=== PATIENT | female | born 1995 | race Caucasian/White ===

== ENCOUNTER 2021-12-14 19:52 | Emergency (ER) | payer OTHER ==
[~2021-12-14] VITALS: Ht 167.6 cm; Wt 61.2 kg
--- NOTE | 2021-12-14 20:39 | NUR ---
BIBS TO ER BED 4. AAOX4. AMBULATORY. NOT IN RESP DISTRESS. CAME IN FOR DIFFUSED ABD PAIN STARTED LAST NIGHT. PT REPORTS CRAMPING. REPORTS BLOATING, GASSY AND BURPING. DENIES N/V/D. URINE WAS COLLECTED. AWAITING PROVIDER AT BEDSIDE.
[2021-12-14] MEDS ORDERED: HYDROCODONE/APAP 5/325MG TABLET PO ONE (21:00)
[2021-12-14] MEDS ORDERED: ONDANSETRON HCL/PF 4 MG/2 ML VIAL IV ONE (21:00)
[2021-12-14] MEDS ORDERED: IV NS 0.9% 1,000 ML IV ONE (21:00)
[2021-12-14] MEDS ORDERED: ONDANSETRON HCL/PF 4 MG/2 ML VIAL ONE (21:02)
[2021-12-14] MEDS ORDERED: HYDROCODONE/APAP 5/325MG TABLET ONE (21:02)
[2021-12-14 21:13] LABS: BASOPHILS % (AUTO) 0.1 % (0.0-2.0); EOSINOPHILS % (AUTO) 0.3 % (0.0-6.0); HEMATOCRIT 38 % (33-45); LYMPHOCYTES # (AUTO) 1.3 K/uL (0.8-4.8); LYMPHOCYTES % (AUTO) 11.2 % (20.0-44.0); MEAN CORPUSCULAR HGB CONC 35 g/dl (31.0-36.0); MEAN CORPUSCULAR VOLUME 89 fL (82-100); MONOCYTES # (AUTO) 0.9 K/uL (0.1-1.30); MONOCYTES % (AUTO) 7.2 % (2.0-12.0); NEUTROPHILS # (AUTO) 9.8 K/uL (1.8-8.9); NEUTROPHILS % (AUTO) 81.2 % (43.0-81.0); PLATELET COUNT (AUTO) 170 K/uL (150-450); RED BLOOD CELL COUNT(AUTO) 4.24 MIL/uL (4.0-5.2)
[2021-12-14 21:36] LABS: CALCIUM, SERUM 8.9 mg/dL (8.5-10.1); CREATININE 0.8 mg/dL (0.6-1.3); POTASSIUM 3.6 mmol/L (3.5-5.1)
[2021-12-14 21:36] LABS: BILIRUBIN,URINE NEGATIVE (NEGATIVE); COLOR,URINE YELLOW (YELLOW); LEUKOCYTE ESTERASE ,URINE MODERATE (NEGATIVE); NITRITE, URINE NEGATIVE (NEGATIVE); PH,URINE 7.5 (5.0-8.0); PROTEIN,URINE NEGATIVE (NEGATIVE); UGLUCOSE NEGATIVE (NEGATIVE); UROBILINOGEN,URINE 0.2 EU/dL (0.2)
[2021-12-14 21:49] LABS: BACTERIA,URINE 3+ /HPF (None Seen); WBC,URINE 21-50 /HPF (0-3)
[2021-12-14 21:51] LABS: ALBUMIN 3.9 g/dL (3.4-5.0); BILIRUBIN,DIRECT 0.3 mg/dL (0.0-0.2); BILIRUBIN,TOTAL 1.1 mg/dL (0.2-1.0); TOTAL PROTEIN, SERUM 7.3 g/dL (6.4-8.2)
[2021-12-14 22:24] LABS: BASOPHILS % (AUTO) 0.3 % (0.0-2.0); EOSINOPHILS % (AUTO) 0.5 % (0.0-6.0); HEMATOCRIT 37 % (33-45); HEMOGLOBIN 12.5 g/dL (11.5-14.8); LYMPHOCYTES # (AUTO) 1.5 K/uL (0.8-4.8); LYMPHOCYTES % (AUTO) 12.8 % (20.0-44.0); MEAN CORPUSCULAR HGB CONC 34 g/dl (31.0-36.0); MEAN CORPUSCULAR VOLUME 90 fL (82-100); MONOCYTES # (AUTO) 0.8 K/uL (0.1-1.30); MONOCYTES % (AUTO) 6.7 % (2.0-12.0); NEUTROPHILS # (AUTO) 9.5 K/uL (1.8-8.9); NEUTROPHILS % (AUTO) 79.7 % (43.0-81.0); PLATELET COUNT (AUTO) 164 K/uL (150-450); RED BLOOD CELL COUNT(AUTO) 4.08 MIL/uL (4.0-5.2); WHITE BLOOD COUNT (AUTO) 11.9 K/uL (4.3-11.0)
[2021-12-14] MEDS ORDERED: MORPHINE SULFATE 8 MG/ML VIAL IV ONE (22:30)
[2021-12-14] MEDS ORDERED: MORPHINE SULFATE INJ 4 MG/ML DISP.SYRIN ONE (22:33)
[2021-12-14] MEDS ORDERED: HYDR-4209 PO (23:20)
--- NOTE | 2021-12-15 00:45 | NUR ---
Patient discharged to home in stable condition. Written and verbal after care instructions given. Patient verbalizes understanding of instruction.IV removed. Catheter intact and site benign. Pressure and 4x4 applied to site. No bleeding noted. Pt ambulatory with a steady gait
[2021-12-15 00:58] VITALS: BP 116/78
== END 2021-12-15 00:58 | disposition home or self-care (01) ==
LOC: ER 20:14
DX: N83.202 Unspecified ovarian cyst, left side (principal); F32.9 Major depressive disorder, single episode, unspecified
CPT/HCPCS: 36415; 74176; 76700; 76856; 80053; 80076; 81001; 83690; 84703; 85025 ×2; 87086; 96361; 96374; 96375; 99284; J2270 ×2; J2405; J7030

== ENCOUNTER 2022-01-30 22:51 | Emergency (ER) | payer OTHER ==
[~2022-01-30] VITALS: Ht 167.6 cm; Wt 61.2 kg
[~2022-01-30 22:51] MED LIST: HYDR-4209 PO
--- NOTE | 2022-01-30 23:40 | NUR ---
BIBS TO ER BED 16. AAOX4. NOT IN RESP DISTRESS. AMBULATORY. CAME IN FOR L LOWR ABD PAIN X YESTERDAY. PER PT SHE WAS DX WITH OVARIAN CYST. PAIN RATES HER PAIN 8/10 FEELS LIKE SQUEEZING. PT WAS NAUSEOUS BUT VERBALIZES THAT ITS BETTER. MD WAS AT THE BEDSIDE FOR EVAL. AWAITING ORDERS
--- NOTE | 2022-01-30 23:59 | NUR ---
URINE SENT TO LAB
[2022-01-31 00:22] LABS: BASOPHILS # (AUTO) 0.1 K/uL (0.0-0.2); BASOPHILS % (AUTO) 0.5 % (0.0-2.0); EOSINOPHILS % (AUTO) 1.2 % (0.0-6.0); HEMATOCRIT 37 % (33-45); HEMOGLOBIN 12.5 g/dL (11.5-14.8); LYMPHOCYTES # (AUTO) 1.5 K/uL (0.8-4.8); MEAN CORPUSCULAR HGB CONC 34 g/dl (31.0-36.0); MEAN CORPUSCULAR VOLUME 89 fL (82-100); MONOCYTES # (AUTO) 0.6 K/uL (0.1-1.30); MONOCYTES % (AUTO) 5.3 % (2.0-12.0); NEUTROPHILS # (AUTO) 8.3 K/uL (1.8-8.9); PLATELET COUNT (AUTO) 203 K/uL (150-450); RED BLOOD CELL COUNT(AUTO) 4.16 MIL/uL (4.0-5.2); WHITE BLOOD COUNT (AUTO) 10.5 K/uL (4.3-11.0)
--- NOTE | 2022-01-31 00:56 | NUR ---
AWAITING FOR US
--- NOTE | 2022-01-31 01:13 | NUR ---
US TECH AT BED SIDE
[2022-01-31 01:33] LABS: CALCIUM, SERUM 8.3 mg/dL (8.5-10.1); CREATININE 0.8 mg/dL (0.6-1.3); POTASSIUM 3.6 mmol/L (3.5-5.1)
[2022-01-31 01:34] LABS: BILIRUBIN,URINE NEGATIVE (NEGATIVE); COLOR,URINE YELLOW (YELLOW); LEUKOCYTE ESTERASE ,URINE MODERATE (NEGATIVE); NITRITE, URINE NEGATIVE (NEGATIVE); PROTEIN,URINE TRACE mg/dl (NEGATIVE); UGLUCOSE NEGATIVE (NEGATIVE); UROBILINOGEN,URINE 0.2 EU/dL (0.2)
[2022-01-31 01:53] LABS: RBC,URINE 0-2 /HPF (0-2)
[2022-01-31 01:54] LABS: BACTERIA,URINE Moderate /HPF (None Seen); SQUAMOUS EPITHELIAL CELL,UR Moderate /HPF (None Seen); WBC,URINE 21-50 /HPF (0-3)
[2022-01-31] MEDS ORDERED: CEPHALEXIN MONOHYDRATE 500 MG CAPSULE PO ONE ×2 (02:50→03:00)
[2022-01-31] MEDS ORDERED: MORPHINE SULFATE INJ 4 MG/ML DISP.SYRIN ONE (02:50)
[2022-01-31] MEDS ORDERED: CEFTRIAXONE 1 G in IV D5W 50 ML IV ONE (03:00)
[2022-01-31] MEDS ORDERED: MORPHINE SULFATE INJ 2 MG/ML DISP.SYRIN IV ONE (03:00)
--- NOTE | 2022-01-31 03:01 | NUR ---
PAGED DR KURTIS HERNANDEZ
--- NOTE | 2022-01-31 03:04 | NUR ---
DR LINO ON THE PHONE WITH [facility]
[2022-01-31] MEDS ORDERED: CEFTRIAXONE 1GM BAG (ER ONLY) 50 ML IV ONE (03:25)
--- NOTE | 2022-01-31 03:32 | NUR ---
KEFLEX NOT GIVEN CHANGED TO IV.
--- NOTE | 2022-01-31 03:39 | NUR ---
COVID SWAB DONE AND SENT TO LAB
--- NOTE | 2022-01-31 03:45 | NUR ---
CALLED [facility] AND FAXED THE CLINICALS TO [facility] AT [phone]
--- NOTE | 2022-01-31 04:01 | NUR ---
DR LINO ON THE PHONE WITH [facility]
--- NOTE | 2022-01-31 04:06 | NUR ---
DR LINO SPEAKING TO THE PT AT BED SIDE
[2022-01-31] MEDS ORDERED: CEPH500C2 PO (04:46)
--- NOTE | 2022-01-31 04:55 | NUR ---
Patient discharged to home in stable condition. Written and verbal after care instructions given. Patient verbalizes understanding of instruction.
[2022-01-31 04:56] VITALS: BP 125/80
== END 2022-01-31 04:56 | disposition home or self-care (01) ==
LOC: ER 22:59
DX: N83.202 Unspecified ovarian cyst, left side (principal); N39.0 Urinary tract infection, site not specified; Z20.822 Contact with and (suspected) exposure to COVID-19; N80.9 Endometriosis, unspecified
CPT/HCPCS: 36415; 76856; 80048; 81001; 84703; 85025; 85730; 87086; 87426; 96365; 96375; 99291; C9803; J0696; J2270; J7060